=== PATIENT | female | born 1995 | race Caucasian/White ===

== ENCOUNTER → 2024-07-21 12:36 | Outpatient (CLI) | payer OTHER, SELFPAY ==
--- NOTE | 2024-07-21 12:38 | DI.RAD.S_ITS ---
PROCEDURE: XR ANKLE RT MIN 3V INDICATIONS: Ground level fall TECHNIQUE: 3 views of the ankle were acquired. COMPARISON: None. FINDINGS: Bones: There are no osseous abnormalities. Tibiotalar and talocalcaneal joints: Normal in width and alignment without arthritic change. Soft tissues: There is mild diffuse soft tissue swelling. IMPRESSION: Normal ankle Dictated by: Kingston Mahoney M.D. on 07/22/2024 at 9:08 Approved by: Kingston Mahoney M.D. on 07/22/2024 at 9:08
--- NOTE | 2024-07-21 12:38 | DI.RAD.S_ITS ---
PROCEDURE: XR KNEE LT 3V INDICATIONS: Ground level fall TECHNIQUE: 3 views of the knee were acquired. COMPARISON: None. FINDINGS: Bones: There are no osseous abnormalities. Joints: The tibialfemoral and patellofemoral joints are normal in width and alignment without arthritic change. . Small effusion noted. Soft tissues: Normal IMPRESSION: No fracture. Small effusion Dictated by: Kingston Mahoney M.D. on 07/22/2024 at 9:20 Approved by: Kingston Mahoney M.D. on 07/22/2024 at 9:20
--- NOTE | 2024-07-21 12:38 | DI.RAD.S_ITS ---
PROCEDURE: XR FOOT RT MIN 3V INDICATIONS: Ground level fall TECHNIQUE: 3 views of the foot were acquired. COMPARISON: None. FINDINGS: Bones: There are no fractures identified. Pes planus and hammertoe deformities 2nd through 5th digits appreciated. Mild hallux valgus noted. Joints: The joint spaces are normal in width and alignment without arthritic change. Soft tissues: Moderate diffuse soft tissue swelling. IMPRESSION: Moderate diffuse soft swelling. No fracture Dictated by: Kingston Mahoney M.D. on 07/22/2024 at 9:15 Approved by: Kingston Mahoney M.D. on 07/22/2024 at 9:16
== END ==
LOC: RAD 12:37
PROVIDERS: Referring Provider Nurse Practitioner Family; Visit Provider Nurse Practitioner Family
DX: S90.01XA Contusion of right ankle, initial encounter (principal); S80.212A Abrasion, left knee, initial encounter; M79.89 Other specified soft tissue disorders; M25.462 Effusion, left knee; W18.30XA Fall on same level, unspecified, initial encounter
CPT/HCPCS: 73562; 73610; 73630